=== PATIENT | female | born 1970 | race Two or more races ===

== ENCOUNTER 2024-04-01 09:31 | Emergency (ER) | payer MEDICAID, OTHER ==
[~2024-04-01] VITALS: Ht 165.1 cm; Wt 88.2 kg
[2024-04-01 09:45] VITALS: BP 155/80; PULSE 122; RESP 18; O2SAT 97
== END 2024-04-01 12:23 | disposition left against medical advice (07) ==
LOC: ER 09:31
DX: F29 Unspecified psychosis not due to a substance or known physiological condition (principal); F20.9 Schizophrenia, unspecified